=== PATIENT | female | born 1970 | race African-American/Black ===

== ENCOUNTER 2016-12-17 15:11 | Emergency (ER) | payer OTHER ==
[~2016-12-17] VITALS: Ht 167.6 cm; Wt 99.5 kg
[2016-12-17 15:12] VITALS: Ht 167.6 cm; Wt 99.5 kg
[2016-12-17] MEDS ORDERED: KETOROLAC 30 MG INJ IV STA (18:00)
[2016-12-17] MEDS ORDERED: KETOROLAC 30 MG INJ IM STA (18:02)
[2016-12-17] MEDS ORDERED: AMLO5TAB4 PO (18:21)
--- NOTE | 2016-12-17 18:54 | RADRPT ---
PROCEDURE: XR Chest. CLINICAL INDICATION: Chest pain TECHNIQUE: AP view of the chest was obtained. COMPARISON: 12/11/2013 FINDINGS: The cardiomediastinal silhouette is within normal limits. There is minimal lower left lung atelect asis. Otherwise the lungs are clear. No pleural effusion or pneumothorax is identified. Visualize d osseous structures appear intact. IMPRESSION: Minimal lower left lung atelectasis. RPTAT: HESO .Ahmet Angel MD, MD Date Time Electronically viewed and signed by .Ahmet Angel MD, on 12/17/2016 18:54 .O/
[2016-12-17] MEDS ORDERED: IBUP800T25 PO (19:58)
[2016-12-17] MEDS ORDERED: HYDR-906 PO (19:59)
--- NOTE | 2016-12-17 20:02 | ERD ---
ER Documentation Chief Complaint Date/Time DATE: 12/17/16 TIME: 20:00 Chief Complaint chest pain HPI This is a 46-year-old female who states that she has sharp pain in her left costosternal margin onset at 11 AM today while working at her desk. She says the pain is sharp and worse when she moves her left arm, twists her trunk or if she turns her head to the right. She says she wonders if she slept better last night because her neck feels sore throat is her chest. No palpitations shortness of breath diaphoresis pain in her jaw elbows back shoulders no cardiac history. Has a history of hypertension only. Pain is better at rest ROS All systems reviewed and are negative except as per history of present illness. Medications Home Meds Active Scripts Hydrocodone/Acetaminophen (Corral 5-325 Tablet) 1 Each Tablet, 1 TAB PO Q6H Y for PAIN, #7 TAB Prov:PRANAV WILSONSTNANS Nilson. DO 12/17/16 Ibuprofen* (Motrin*) 800 Mg Tab, 800 MG PO Q6H Y for PAIN AND OR ELEVATED TEMP, #30 TAB Prov:PRANAV WILSONSTOLOS A. DO 12/17/16 Reported Medications Amlodipine Besylate* (Norvasc*) 5 Mg Tablet, 5 MG PO DAILY, TAB 12/17/16 Allergies Allergies: Coded Allergies: No Known Allergy (Verified , 12/17/16) PMhx/Soc History of Surgery: Yes () Anesthesia Reaction: No Hx Neurological Disorder: No Hx Respiratory Disorders: Yes (ASTHMA A CHILD) Hx Cardiac Disorders: No Hx Psychiatric Problems: No Hx Miscellaneous Medical Probl: No Hx Alcohol Use: Yes Hx Substance Use: No Hx Tobacco Use: No Smoking Status: Never smoker FmHx Family History: No coronary disease Physical Exam Vitals Vital Signs Date Time Temp Pulse Resp B/P Pulse Ox O2 Delivery O2 Flow Rate FiO2 12/17/16 19:05 79 18 142/55 100 Room Air 12/17/16 15:12 98.5 103 18 136/74 100 Physical Exam Const: Well-developed, well-nourished Head: Atraumatic, normocephalic Eyes: Normal Conjunctiva, PERRLA, EOMI, normal sclera, no nystagmus ENT: Normal External Ears, Nose and Mouth, moist mucus membranes. Neck: Full range of motion. No meningismus, no lymphadenopathy. Resp: Clear to auscultation bilaterally, no wheezing, rhonchi, rales, there is pinpoint reproducible pain to palpation at the costosternal margin of a single rib, ribs 6. The pain is reproducible when she turns her head all the way to the right, or with range of motion of the left upper extremity or twisting the trunk Cardio: Regular rate and rhythm, no murmurs, S1 S2 present Abd: Soft, non tender x 4, non distended. Normal bowel sounds, no guarding or rebound, no pulsitile abdominal masses or bruits Skin: No petechiae or rashes, no ecchymosis , no maculopapular rash Back: No midline or flank tenderness Ext: No cyanosis, or edema, FROM x 4, normal inspection, neurovascularly intact x 4 Neur: Awake and alert, STR 5/5 x 4, sensation intact x 4, no focal findings, cerebellum intact Psych: Normal Mood and Affect Results 24 hrs Laboratory Tests Test 12/17/16 18:30 Troponin I < 0.012ng/ml Current Medications Medications (Trade) Dose Ordered Sig/Kana Route PRN Reason Start Time Stop Time Status Last Admin Dose Admin Ketorolac Tromethamine (Toradol) 30 mg ONCE STAT IV 12/17/16 18:00 12/17/16 18:03 DC Ketorolac Tromethamine (Toradol) 60 mg ONCE STAT IM 12/17/16 18:02 12/17/16 18:04 DC 12/17/16 18:23 Procedures/MDM EKG: Rate/Rhythm: Normal Sinus Rhythm,NL intervals QRS, ST, QT: NORMAL MI, QRS, QT] Impression: NORMAL EKG PROCEDURE: XR Chest. CLINICAL INDICATION: Chest pain TECHNIQUE: AP view of the chest was obtained. COMPARISON: 12/11/2013 FINDINGS: The cardiomediastinal silhouette is within normal limits. There is minimal lower left lung atelectasis. Otherwise the lungs are clear. No pleural effusion or pneumothorax is identified. Visualized osseous structures appear intact. IMPRESSION: Minimal lower left lung atelectasis. RPTAT: HESO .Ahmet Angel MD, Date Time Electronically viewed and signed by .Ahmet Angel MD, on 12/17/2016 18:54 .O/ CC: MONICA WILSON DO Patient's troponin is negative. She says her pain is gone after the Toradol shot. She is able to turn her head to the right there is no pain. I feel strongly her pain is musculoskeletal in nature Departure Diagnosis: Primary Impression: Costochondritis Condition: Stable Patient Instructions: Costochondritis MONICA WILSON DO Dec 17, 2016 20:02
[2016-12-17 20:43] VITALS: BP 119/93; PULSE 67; RESP 18; TEMP 98.1
== END 2016-12-17 20:43 | disposition home or self-care (01) ==
LOC: E/R 15:11
DX: M94.0 Chondrocostal junction syndrome [Tietze] (principal); I10 Essential (primary) hypertension
CPT/HCPCS: 71010; 84484; 93005; J1885; 96372

== ENCOUNTER 2016-12-19 12:23 | Emergency (ER) | payer OTHER ==
[~2016-12-19] VITALS: Ht 170.2 cm; Wt 99.0 kg
[~2016-12-19 12:23] MED LIST: AMLO5TAB4 PO; HYDR-906 PO; IBUP800T25 PO
[2016-12-19 12:25] VITALS: Ht 170.2 cm; Wt 99.0 kg
[2016-12-19] MEDS ORDERED: PRED20TA PO (13:40)
--- NOTE | 2016-12-19 14:05 | ERD ---
ER Documentation Chief Complaint Date/Time DATE: 12/19/16 TIME: 14:04 Chief Complaint blisters on bilat legs x 1 week HPI Patient is a 46-year-old female with hypertension who presents with a rash. The patient has had a itchy rash which form is pustules and then turned a blisters for the past 1 week. She has no fevers. She tried using rubbing alcohol and hydrocortisone cream. She denies any new soaps, lotions, or medications. She has had no fevers. Upon review of old medical records the patient has multiple visits to the ER for various complaints. She does have a primary doctor. ROS All systems reviewed and are negative except as per history of present illness. Medications Home Meds Active Scripts Prednisone* (Prednisone*) 20 Mg Tab, 60 MG PO DAILY for 5 Days, TAB Prov:ANABEL REYNA MD 12/19/16 Hydrocodone/Acetaminophen (Woodson 5-325 Tablet) 1 Each Tablet, 1 TAB PO Q6H Y for PAIN, #7 TAB Prov:MONICA WILSON DO 12/17/16 Ibuprofen* (Motrin*) 800 Mg Tab, 800 MG PO Q6H Y for PAIN AND OR ELEVATED TEMP, #30 TAB Prov:PRANAV WILSONSTJORJE Sol DO 12/17/16 Reported Medications Amlodipine Besylate* (Norvasc*) 5 Mg Tablet, 5 MG PO DAILY, TAB 12/17/16 Allergies Allergies: Coded Allergies: No Known Allergy (Verified , 12/19/16) PMhx/Soc History of Surgery: Yes () Anesthesia Reaction: No Hx Neurological Disorder: No Hx Respiratory Disorders: Yes (ASTHMA A CHILD) Hx Cardiac Disorders: No Hx Psychiatric Problems: No Hx Miscellaneous Medical Probl: No Hx Alcohol Use: Yes Hx Substance Use: No Hx Tobacco Use: No FmHx Family History: diabetes Physical Exam Vitals Vital Signs Date Time Temp Pulse Resp B/P Pulse Ox O2 Delivery O2 Flow Rate FiO2 12/19/16 12:25 98.5 99 19 123/59 100 Physical Exam Const: No acute distress Head: Atraumatic Eyes: Normal Conjunctiva ENT: Normal External Ears, Nose and Mouth. Neck: Full range of motion..~ No meningismus. Resp: Clear to auscultation bilaterally Cardio: Regular rate and rhythm, no murmurs Abd: Soft, non tender, non distended. Normal bowel sounds Skin: Blister formation with fluid-filled blisters on the bilateral lower extremities, negative Nikolsky sign Back: No midline or flank tenderness Ext: No cyanosis, or edema Neur: Awake and alert Psych: Normal Mood and Affect Procedures/MDM Patient is a 46-year-old female presents with a rash to her lower legs. This has the appearance of bullous pemphigoid. She is nontoxic appearing and is afebrile. I believe outpatient management is appropriate and I will give her a prescription for 5 days of prednisone. The patient can follow-up with her primary doctor within 24-48 hours for reevaluation but she may need outpatient dermatology follow-up. The patient can return for any worsening symptoms. I do not believe she requires further workup or admission at this time. Departure Diagnosis: Primary Impression: Bullous pemphigoid Additional Impression: Rash Condition: Fair Patient Instructions: Blister, Dermatitis, Non-Specific Referrals: Your doctor Additional Instructions: Call your primary care doctor TOMORROW for an appointment during the next 1-2 days.See the doctor sooner or return here if your condition worsens before your appointment time. ANABEL REYNA MD Dec 19, 2016 14:05
== END 2016-12-19 14:42 | disposition home or self-care (01) ==
LOC: FTE 12:23
DX: L12.0 Bullous pemphigoid (principal); R21 Rash and other nonspecific skin eruption; S80.822A Blister (nonthermal), left lower leg, initial encounter; J45.909 Unspecified asthma, uncomplicated; X58.XXXA Exposure to other specified factors, initial encounter; Y92.9 Unspecified place or not applicable
CPT/HCPCS: 99283

== ENCOUNTER 2018-02-11 07:42 | Emergency (ER) | END 2018-02-11 09:01 | disposition home or self-care (01) ==

== ENCOUNTER 2018-02-23 08:01 | Emergency (ER) | END 2018-02-23 11:54 | disposition home or self-care (01) ==

== ENCOUNTER 2018-08-22 22:22 | Emergency (ER) | payer OTHER ==
[~2018-08-22] VITALS: Wt 98.6 kg
[~2018-08-22 22:22] MED LIST changes: +BENZ-6 PO; +HYDR-4011 PO; -HYDR-906 PO; +IBUP-1542 PO; -IBUP800T25 PO; +IBUP800T48 PO; +ONDA4TAB14 PO; +PRED20TA PO; +PROM6.2515 PO
[2018-08-23] MEDS ORDERED: HYDROmorphONE 2 MG/ML SYG IM STA (01:10)
--- NOTE | 2018-08-23 02:30 | ERD ---
ER Documentation Chief Complaint Chief Complaint R LEG PAIN FROM HIP TO FOOT X'S 1 DAY, DENIES TRAUMA HPI 47-year-old woman complaining of right hip pain beginning yesterday, pain has been constant nonradiating but worse with ambulation. She denies prior episodes and denies trauma, no falls, no fevers or chills, no redness or swelling to the hip, no chest pain or shortness of breath. ROS All systems reviewed and are negative except as per history of present illness. Medications Home Meds Active Scripts Cyclobenzaprine Hcl* (Cyclobenzaprine Hcl*) 10 Mg Tablet, 10 MG PO TID PRN for MUSCLE SPASMS, #15 TAB Prov:MARLA BANEGAS MD 08/23/18 Naproxen* (Naprosyn*) 500 Mg Tablet, 500 MG PO BID PRN for PAIN AND/OR INFLAMMATION, #30 TAB Prov:MARLA BANEGAS MD 08/23/18 Reported Medications Amlodipine Besylate* (Norvasc*) 5 Mg Tablet, 5 MG PO DAILY, TAB 12/17/16 Discontinued Scripts Ondansetron (Ondansetron Odt) 4 Mg Tab.rapdis, 4 MG PO Q6H PRN for NAUSEA AND/OR VOMITING, #10 TAB Prov:BERTA DE LEON PA-C 02/23/18 Ibuprofen* (Motrin*) 600 Mg Tab, 600 MG PO Q6, #30 TAB Prov:BERTA DE LEON PA-C 02/23/18 Hydrocodone/Acetaminophen (Buna 5-325 Tablet) 1 Each Tablet, 1 TAB PO Q6H PRN for PAIN, #7 TAB Prov:BERTA DE LEON PA-C 02/23/18 Promethazine Hcl* (Promethazine Hcl* Syrup) 6.25 Mg/5 Ml Syrup, 6.25 MG PO Q6H PRN for COUGH, #100 ML Prov:MORRO JACKMAN PA-C 02/11/18 Benzonatate* (Tessalon Perle*) 100 Mg Capsule, 100 MG PO Q8H PRN for COUGH, #30 CAP Prov:MORRO JACKMAN PA-C 02/11/18 Prednisone* (Prednisone*) 20 Mg Tab, 60 MG PO DAILY for 5 Days, TAB Prov:ANABEL REYNA MD 12/19/16 Hydrocodone/Acetaminophen (Buna 5-325 Tablet) 1 Each Tablet, 1 TAB PO Q6H PRN for PAIN, #7 TAB Prov:MONICA WILSON. DO 12/17/16 Ibuprofen* (Motrin*) 800 Mg Tab, 800 MG PO Q6H PRN for PAIN AND OR ELEVATED TEMP, #30 TAB Prov:PRANAV WILSONSTOLOS A. DO 12/17/16 Allergies Allergies: Coded Allergies: No Known Allergy (Unverified , 08/23/18) PMhx/Soc Chronic pain syndrome, hypertension, history of kidney and ureter stones History of Surgery: Yes () Anesthesia Reaction: No Hx Neurological Disorder: No Hx Respiratory Disorders: Yes (ASTHMA A CHILD) Hx Cardiac Disorders: No Hx Psychiatric Problems: No Hx Miscellaneous Medical Probl: No Hx Alcohol Use: Yes (occassional) Hx Substance Use: No Hx Tobacco Use: No Smoking Status: Never smoker FmHx Family History: No diabetes Physical Exam Vitals Vital Signs Date Temp Pulse Resp B/P (MAP) Pulse Ox O2 O2 Flow FiO2 Time Delivery Rate 08/23/18 68 20 125/72 99 Room Air 02:55 (89) 08/22/18 99.9 94 20 176/101 99 22:42 (126) Physical Exam Const: Well-developed well-nourished woman, afebrile Head: Atraumatic Eyes: Normal Conjunctiva ENT: Normal External Ears, Nose and Mouth. Neck: Full range of motion. No meningismus. Resp: Clear to auscultation bilaterally Cardio: Regular rate and rhythm, no murmurs Abd: Soft, non tender, non distended. Normal bowel sounds Skin: No petechiae or rashes Back: No midline or flank tenderness Ext: Patient has mild right lateral hip tenderness to touch but no induration or erythema, range of motion limited due to pain although distal pulses equal bilateral. Neur: Awake and alert x3, no focal deficits or facial asymmetry Psych: Normal Mood and Affect Results 24 hrs Current Medications Medications Dose Sig/Kana Start Time Status Last (Trade) Ordered Route PRN Stop Time Admin Dose Reason Admin 1 mg ONCE STAT 08/23/18 DC 08/23/18 Hydromorphone IM 01:10 01:29 HCl 08/23/18 01:12 (Dilaudid) Procedures/MDM X-ray Pelvis 1V Interpreted by me: Bones: No fracture Joints: No dislocation Foreign body: None X-ray right hip 2V Interpreted by me: Bones: No fracture Joints: No dislocation Foreign body: None I administered hydromorphone 1 mg IM x1. Differential diagnoses considered, included but not limited to acute coronary syndrome, pulmonary embolism, aortic dissection, abdominal aortic aneurysm, sepsis, stroke, meningitis, encephalitis, pneumonia, appendicitis, cholecystitis, bowel obstruction, pyelonephritis, nephrolithiasis, cystitis, as well as metabolic, hematologic, and electrolyte abnormalities. As well as abs cess, cellulitis, fractures, and dislocations. Patient feels much better at this time, and vital signs are normal, symptoms hav e improved. I did give strict instructions to return to the ED if symptoms continue or worsen, patient will otherwise follow-up with primary care physician. Patient understood instructions and agreed to plan. Disclaimer: Inadvertent spelling and grammatical errors are likely due to EHR/dictation software use and do not reflect on the overall quality of patient care. Also, please note that the electronic time recorded on this note does not necessarily reflect the actual time of the patient encounter. Departure Diagnosis: Primary Impression: Hip strain Encounter type: initial encounter Laterality: right Qualified Codes: S76.011A - Strain of muscle, fascia and tendon of right hip, initial encounter Condition: MARLA Haq MD Aug 23, 2018 02:30
[2018-08-23 02:55] VITALS: BP 125/72; PULSE 68; RESP 20
[2018-08-23] MEDS ORDERED: NAPR-985 PO (03:07)
[2018-08-23] MEDS ORDERED: CYCL10TA7 PO (03:07)
== END 2018-08-23 04:14 | disposition home or self-care (01) ==
LOC: E/R 22:22
DX: S76.011A Strain of muscle, fascia and tendon of right hip, initial encounter (principal); I10 Essential (primary) hypertension; J45.909 Unspecified asthma, uncomplicated; X58.XXXA Exposure to other specified factors, initial encounter; Y92.9 Unspecified place or not applicable
CPT/HCPCS: 72170; 73510; 96372; J1170; Z7502